=== PATIENT | male | born 2000 | race Caucasian/White ===

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

== ENCOUNTER 2019-09-22 23:50 | Emergency (ER) | payer SELFPAY ==
[2019-09-23] MEDS ORDERED: Ibuprofen TAB* 400 MG PO ONE ×2 (00:03→00:49)
--- NOTE | 2019-09-23 00:54 | ED ---
Influenza-Like Illness - HPI Summary HPI Summary: This pt is a 18 Y/O [facility] friend with a CC of diagnosed influenza. He states that he has had fatigue, fevers, chills, myalgia, headaches, and inability to stand. He states that he was seen at the urgent care recently and was given a script for Tamiflu. He states that he has been taking APAP, Dayquil, and Nyquil without relief. His current fever is a 102.6 F. He has no pertinent PMHx. He denies any aggravating or alleviating factors. - History of Current Complaint Chief Complaint: EDFluSymptoms Time Seen by Provider: 09/23/19 00:45 Hx Obtained From: Patient Onset/Duration: Sudden Onset, Still Present Severity: Moderate Associated Signs & Symptoms: Fever - 102.6 F, Myalgia, Headache Related Hx: Possible Flu/Infectious Exposure - Dx influenza - Allergy/Home Medications Allergies/Adverse Reactions: Allergies Allergy/AdvReac Type Severity Reaction Status Date / Time No Known Allergies Allergy Verified 09/22/19 23:58 PMH/Surg Hx/FS Hx/Imm Hx Previously Healthy: Yes Endocrine/Hematology History: Denies: Hx Anticoagulant Therapy, Hx Diabetes Cardiovascular History: Denies: Hx Hypertension, Hx Pacemaker/ICD History: Denies: Hx Dialysis, Hx Renal Disease Sensory History: Denies: Hx Eye Prosthesis, Hx Legally Blind, Hx Deafness Opthamlomology History: Denies: Hx Eye Prosthesis, Hx Legally Blind Neurological History: Denies: Hx Dementia Psychiatric History: Denies: Hx Autism - Cancer History Hx Chemotherapy: No Hx Radiation Therapy: No - Surgical History Surgical History: None - Immunization History Date of Influenza Vaccine: Denies Immunizations Up to Date: Yes Infectious Disease History: No Infectious Disease History: Denies: Traveled Outside the [place] in Last 30 Days - Family History Known Family History: Negative: Cardiac Disease, Hypertension - Social History Occupation: Student - [employer] Lives: Dormitory/Roommates Alcohol Use: Occasionally Hx Substance Use: No Substance Use Type: Reports: None Hx Tobacco Use: No Smoking Status (MU): Never Smoked Tobacco Review of Systems Positive: Fever - 102.6 F, Chills, Fatigue, Other - States trouble standing Positive: Myalgia Positive: Headache All Other Systems Reviewed And Are Negative: Yes Physical Exam - Summary Physical Exam Summary: Constitutional: Well-developed, Well-nourished, Alert. (-) Distressed Skin: Warm, Dry HENT: Normocephalic; Atraumatic Eyes: Conjunctiva normal Neck: Musculoskeletal ROM normal neck. (-) JVD, (-) Stridor, (-) Tracheal deviation Cardio: Rhythm regular, rate normal, Heart sounds normal; Intact distal pulses; The pedal pulses are 2+ and symmetric. Radial pulses are 2+ and symmetric. (-) Murmur Pulmonary/Chest wall: Effort normal. (-) Respiratory distress, (-) Wheezes, (-) Rales Abd: Soft, (-) tenderness, (-) Distension, (-) Guarding, (-) Rebound Musculoskeletal: (-) Edema Lymph: (-) Cervical adenopathy Neuro: Alert, Oriented x3 Psych: Mood and affect Normal Triage Information Reviewed: Yes Vital Signs On Initial Exam: Initial Vitals Temp Pulse Resp BP Pulse Ox 102.6 F 113 16 122/68 95 09/22/19 23:52 09/22/19 23:52 09/22/19 23:52 09/22/19 23:52 09/22/19 23:52 Vital Signs Reviewed: Yes Procedures - Sedation Patient Received Moderate/Deep Sedation with Procedure: No Diagnostics - Vital Signs Vital Signs Temp Pulse Resp BP Pulse Ox 09/22/19 23:52 102.6 F 113 16 122/68 95 - Laboratory Lab Statement: Any lab studies that have been ordered have been reviewed, and results considered in the medical decision making process. Flu Symptom Course/Dx - Course Course Of Treatment: This pt is a 18 Y/O M presenting to [facility] accompanied by his friend with a CC of diagnosed influenza. He states that he has had fatigue, fevers, chills, myalgia, headaches, and inability to stand. He states that he was seen at the urgent care recently and was given a script for Tamiflu. He states that he has been taking APAP, Dayquil, and Nyquil without relief. His current fever is a 102.6 F. He has no pertinent PMHx. He denies any aggravating or alleviating factors. His PE found no acute abnormalities. He will be given APAP and discharged home. - Diagnoses Differential Diagnosis/HQI/PQRI: Positive: Influenza Provider Diagnoses: Influenza Discharge ED - Sign-Out/Discharge Documenting (check all that apply): Patient Departure - discharge - Discharge Plan Condition: Improved Disposition: HOME Patient Education Materials: Influenza (ED) Referrals: [facility] - Ashish [Primary Care Provider] - - Billing Disposition and Condition Condition: IMPROVED Disposition: Home - Attestation Statements Document Initiated by Brandon: Yes Documenting Scribe: Andi Alcaraz Provider For Whom Brandon is Documenting (Include Credential): Jose Hinson MD Scribe Attestation: Andi Brown, haydeed for Jose Hinson MD on 09/23/19 at 1923. Scribe Documentation Reviewed: Yes Provider Attestation: The documentation as recorded by the Andi rios accurately reflects the service I personally performed and the decisions made by , Jose Hinson MD Status of Scribe Document: Viewed
[2019-09-23 01:12] VITALS: BP 126/58
== END 2019-09-23 01:11 | disposition home or self-care (01) ==
LOC: ED 23:50
DX: J11.1 Influenza due to unidentified influenza virus with other respiratory manifestations (principal); R50.9 Fever, unspecified; R51 Headache
CPT/HCPCS: 99282; A9270-GY